=== PATIENT | male | born 1980 | race Caucasian/White ===

== ENCOUNTER 2016-10-05 12:55 | Inpatient (IN) | payer MEDICARE, OTHER ==
--- NOTE | ~2016-10-05 | DS ---
Unit #: [id number] #: [id number] Patient: BALAJI SHARP [id number] [facility] [address] [place] [address] [id number] MR#: [id number] NAME: BALAJI SHARP. ROOM: [facility] Age: 36 Sex: M Admission Date: 10/05/2016 : 1980 Discharge Date: 10/09/2016 Attending Physician: Milton Og M.D. DISCHARGE SUMMARY REASON FOR ADMISSION The patient is a 36-year-old white male with a history of schizoaffective disorder, admitted with exacerbation of symptoms following a period of medication noncompliance. HOSPITAL COURSE The patient was admitted to the [address] [place] [address] unit, but transferred to the [address] [place] [address] unit. He was restarted on previously prescribed medications including Remeron, Zoloft, and olanzapine and tolerated re-initiation of medications without complaint. He stabilized rapidly and by 10/09/2016 requested discharge, it was so ordered. FINAL DIAGNOSIS Schizoaffective disorder. DISPOSITION ON DISCHARGE The patient is discharged on the following medications; Remeron 15 mg h.s. for depression, Zyprexa 10 mg q.a.m. and 20 mg at h.s. for psychosis, Zoloft 50 mg daily for depression. DISCHARGE INSTRUCTIONS No dietary or physical restrictions were placed upon the patient at the time of discharge. FOLLOWUP Followup will take place through the auspices of community mental health resources. PROGNOSIS The patient's prognosis is considered fair. Dictated by... Milton Og M.D. CB/raoul TD: 10/09/2016 21:46 JOB #: [id number] Unit #: [id number] #: [id number] Patient: BALAJI SHARP DISCHARGE SUMMARY X Milton Og MD X DISCHARGE SUMMARY
--- NOTE | ~2016-10-05 | HP ---
Unit #: [id number] #: [id number] Patient: GABO SHARP [id number] [place] [address] [id number] I MR#: [id number] NAME: GABO SHARP. [facility] Age: 36 Sex: M Admission Date: 10/05/2016 : 1980 Attending Physician: Milton Og M.D. Admitting Physician: Milton Og M.D. Primary Care Physician: Primary Care Physician No HISTORY AND PHYSICAL HISTORY OF PRESENT ILLNESS Gabo is a 36-year-old male admitted on 10/05/2016 to [facility] for suicidal ideation and psychosis. PAST MEDICAL HISTORY None. PAST SURGICAL HISTORY None. ALLERGIES No known drug allergies. SOCIAL HISTORY Currently smokes 1 pack of cigarettes daily. Drinks two 24 ounce beers daily and occasional use of marijuana. He is currently single and living in a long-term. FAMILY HISTORY Noncontributory. REVIEW OF SYSTEMS CONSTITUTIONAL: No fever or chills. HEENT: Denies any sore throat, ear pain or runny nose. CARDIOVASCULAR: Denies chest pain, irregular heart rhythm or palpitations. CHEST: Denies shortness of breath or cough. No hemoptysis. GASTROINTESTINAL: Denies nausea, vomiting, diarrhea or chronic constipation. ENDOCRINE: Denies history of increased thirst or urination. No recent significant weight loss or gain. GENITOURINARY: Denies dysuria, frequency, or hematuria. SKIN: Denies any rashes. HEMATOLOGIC: Denies history of increased bleeding or bruising. MUSCULOSKELETAL: Denies any hot, swollen joints. No generalized muscle pain. NEUROLOGIC: Denies problems with vision or speech. No frequent, severe headaches. No numbness, tingling or weakness in any extremities. Denies loss of bladder or bowel control. CURRENT MEDICATIONS 1. Remeron. 2. Zoloft. Unit #: [id number] #: [id number] Patient: GABO SHARP PHYSICAL EXAMINATION GENERAL: Alert, oriented, in no acute distress. VITAL SIGNS: Blood pressure 120/76, heart rate 82, respirations 18, temperature 97.9. SKIN: Warm and dry without rash or lesion. HEENT: Normocephalic. TMs not viewed. Oral and nasal passages clear. Conjunctivae clear. PERRLA. EOMs intact. NECK: Supple without lymphadenopathy or thyromegaly. HEART: Regular rate and rhythm without murmur. LUNGS: Clear. ABDOMEN: Soft, nontender, without masses or hepatosplenomegaly. : Not done. EXTREMITIES: No evidence of cyanosis, clubbing or edema. Moves all without focal deficit. NEUROLOGICAL: Grossly within normal limits. Cranial Nerves: II: Visual lang are intact. III, IV AND : Extraocular movements are intact. Pupils are equal, round and reactive to light. V: Facial sensation is grossly normal. VII: Facial movements and expression are normal. VIII: Auditory acuity grossly intact. IX, X: Uvula is midline. Phonation is normal. XI: Patient shrugs shoulders and turns head normally. XII: Tongue protrudes in the midline. Sensory and Motor Function: Sensory and motor sensation is grossly normal. Motor: moves all extremities well. Coordination: Gait is normal. Deep Tendon Reflexes: Intact. IMPRESSION Psychiatric admission. RECOMMENDATIONS PSYCHIATRIC: Per psychiatrist. MEDICAL: No contraindications to participate in facility's activities. MEDICAL PROGNOSIS Good. MEDICAL CONDITION Stable. Dictated by... Reynaldo Kiser/faiza TD: 10/06/2016 17:32 JOB #: [id number] Unit #: [id number] #: [id number] Patient: GABO SHARP HISTORY AND PHYSICAL X IMANI JERONIMO APRN X HISTORY AND PHYSICAL
--- NOTE | ~2016-10-05 | PN ---
Unit #: [id number] #: [id number] Patient: BALAJI SHARP [id number] [facility] [address] [place] [address] [id number] I MR#: [id number] NAME: BALAJI SHARP ROOM: 13 Age: 36 Sex: M Admission Date: 10/05/2016 : 1980 Attending Physician: Milton Og M.D. Admitting Physician: Milton Og M.D. Primary Care Physician: Primary Care Physician Ale CHRISTOPHER PROGRESS NOTES DATE 10/07/2016 DISCUSSION The patient is abed today resting comfortably. He offers no complaints and staff reports no management issues. He has been compliant with medications and wallis routine otherwise. Dictated by... Milton Og M.D. CB/faiza TD: 10/07/2016 17:46 JOB #: [id number] CANDI PROGRESS NOTES X Milton Og MD X PROGRESS NOTE
--- NOTE | ~2016-10-05 | PN ---
Unit #: [id number] #: [id number] Patient: BALAJI SHARP [id number] [facility] [address] [place] [address] [id number] I MR#: [id number] NAME: BALAJI SHARP. ROOM: 13 Age: 36 Sex: M Admission Date: 10/05/2016 : 1980 Attending Physician: Milton Og M.D. Admitting Physician: Milton Og M.D. Primary Care Physician: Primary Care Physician Ale CHRISTOPHER PROGRESS NOTES DATE 10/08/2016 DISCUSSION The patient is more cooperative and less irritable. He is compliant with medications and wallis routine and is denying psychotic symptoms at this point. Should he sustain progress, discharge could take place as early as Monday. Dictated by... Milton Og M.D. CB/shamir TD: 10/08/2016 12:53 JOB #: [id number] CANDI PROGRESS NOTES X Milton Og MD PROGRESS NOTE
--- NOTE | ~2016-10-05 | PA ---
Unit #: [id number] #: [id number] Patient: BALAJI SHARP [id number] [facility] [address] [place] [address] [id number] MR#: [id number] NAME: BALAJI SHARP. ROOM: P[facility] Age: 36 Sex: M Admission Date: 10/05/2016 : 1980 Date of Assessment: 10/06/2016 Attending Physician: Milton Og M.D. Admitting Physician: Milton Og M.D. Primary Care Physician: Primary Care Physician No PSYCHIATRIC ASSESSMENT IDENTIFYING INFORMATION The patient is a 36-year-old homeless white male admitted to the [address] [place] [address] Unit after he had presented to this facility reporting increasing alcohol use as well as some suicidal ideation related to his current state of homelessness. CHIEF COMPLAINT None given. INFORMANT(S) Patient and chart, reliability is fair. HISTORY OF PRESENT ILLNESS The patient is a 36-year-old white male generally cared for at this facility by Dr. Nestor [place]. He is diagnosed with schizoaffective disorder, and his current psychotropic medications include olanzapine, Remeron, and Zoloft. The patient had presented to this facility yesterday. He has been homeless for some time, and this prescribed medications. He has been loud and aggressive with staff this morning and is requesting transfer to a different unit. The patient reports positive suicidal ideation and has reported increasing paranoia as well as poor sleep. He was considering the suicidal ideation secondary to concerns about his mothers failing health at the time of admission. He is also reporting positive auditory hallucinations. For more complete history of present illness, please refer to previously dictated notes. PAST PSYCHIATRIC HISTORY Reviewed, no changes. PAST MEDICAL HISTORY Reviewed, no changes. MEDICATIONS Zoloft, olanzapine, and Remeron. ALLERGIES None. FAMILY HISTORY Reviewed, no changes. SOCIAL HISTORY Reviewed, no changes. Unit #: [id number] #: [id number] Patient: BALAJI SHARP MENTAL STATUS EXAMINATION Examination at this time reveals the patient to be a well-developed well-nourished somewhat disheveled white male appearing stated age. He is in no apparent physical distress at the time of examination. He is awake, alert, and oriented in all spheres. His mood is dysphoric, his affect is somewhat labile. Speech is generally well-coherent. There are no gross deficits in memory or cognition noted. Intelligence is judged to be in the average range based on fund of knowledge. The patient is cooperative throughout the interview. He is currently endorsing positive suicidal ideation. He denies homicidal ideation. He denies any psychotic symptoms. His judgment and insight appear to be significantly impaired. ASSETS AND LIABILITIES The patient's assets: Motivation for change. Liabilities: Lack of resources. DIAGNOSTIC IMPRESSION 1. Schizoaffective disorder. 2. Alcohol use disorder. 3. Cannabis use disorder. TREATMENT PLAN The patient remains hospitalized for safety and stabilization. He is to restart medications, and we will transfer the patient to the [address] [place] [address] Unit for more appropriate therapeutic milieu. ESTIMATED LENGTH OF STAY 5 to 7 days in the hospital. Dictated by... Milton Og M.D. Jeff TD: 10/06/2016 14:46 JOB #: [id number] PSYCHIATRIC ASSESSMENT X Milton Og MD X PSYCHIATRIC ASSESSMENT
[~2016-10-05 12:55] MED LIST: CLARITIN10 MG PO; KLONOPIN PO; NEXIUM PO; ZYPREXA PO
== END 2016-10-09 13:53 | disposition home or self-care (01) | DRG 885 ==
LOC: P2L 12:55 → P1S 10-06 16:07
DX: F25.0 Schizoaffective disorder, bipolar type (principal); R45.851 Suicidal ideations; F29 Unspecified psychosis not due to a substance or known physiological condition; F10.10 Alcohol abuse, uncomplicated; F12.10 Cannabis abuse, uncomplicated; F17.200 Nicotine dependence, unspecified, uncomplicated; Z91.14 Patient's other noncompliance with medication regimen

== ENCOUNTER 2017-01-13 17:11 | Inpatient (IN) | payer MEDICARE, OTHER ==
--- NOTE | ~2017-01-13 | HP ---
Unit #: [id number] #: [id number] Patient: BALAJI SHARP [id number] [place] [address] [id number] MR#: [id number] NAME: BALAJI SHARP. ROOM: [facility] Age: 36 Sex: M Admission Date: 01/13/2017 : 1980 Attending Physician: Milton Og M.D. Admitting Physician: Milton Og M.D. Primary Care Physician: Primary Care Physician No HISTORY AND PHYSICAL HISTORY OF PRESENT ILLNESS The patient is a 36-year-old male admitted to [address] [place] [address] on 01/13/2017 for psychosis. PAST MEDICAL HISTORY The patient denies. PAST SURGICAL HISTORY Cholecystectomy. SOCIAL HISTORY He is disabled. He lives at [facility], smokes one pack of cigarettes daily. FAMILY MEDICAL HISTORY Noncontributory. ALLERGIES No known drug allergies. CURRENT MEDICATIONS Remeron, Zyprexa and Zoloft. REVIEW OF SYSTEMS CONSTITUTIONAL: No fever or chills. HEENT: Denies any sore throat, ear pain or runny nose. CARDIOVASCULAR: Denies chest pain, irregular heart rhythm or palpitations. CHEST: Denies shortness of breath or cough. No hemoptysis. GASTROINTESTINAL: Denies nausea, vomiting, diarrhea or chronic constipation. ENDOCRINE: Denies history of increased thirst or urination. No recent significant weight loss or gain. GENITOURINARY: Denies dysuria, frequency, or hematuria. SKIN: Denies any rashes. HEMATOLOGIC: Denies history of increased bleeding or bruising. MUSCULOSKELETAL: Denies any hot, swollen joints. No generalized muscle pain. NEUROLOGIC: Denies problems with vision or speech. No frequent, severe headaches. No numbness, tingling or weakness in any extremities. Denies loss of bladder or bowel control. PHYSICAL EXAM GENERAL: He is awake, alert and oriented in no acute distress. Unit #: [id number] #: [id number] Patient: BALAJI SHARP VITAL SIGNS: Temperature 98.2, heart rate 76, respiration 16, blood pressure 138/76. HEIGHT: 6'2". WEIGHT: 205 pounds. SKIN: Warm and dry without rash or lesion. HEENT: Normocephalic. TMs not viewed. Oral and nasal passages clear. Conjunctivae clear. PERRLA. EOMs intact. NECK: Supple without lymphadenopathy or thyromegaly. HEART: Regular rate and rhythm without murmur. LUNGS: Clear. ABDOMEN: Soft, nontender. : Not done. EXTREMITIES: No evidence of cyanosis, clubbing or edema. Moves all without focal deficit. MUSCULOSKELETAL: The patient reports neck pain. NEUROLOGICAL: Grossly within normal limits. Cranial Nerves: II: Visual lang are intact. III, IV AND : Extraocular movements are intact. Pupils are equal, round and reactive to light. V: Facial sensation is grossly normal. VII: Facial movements and expression are normal. VIII: Auditory acuity grossly intact. IX, X: Uvula is midline. Phonation is normal. XI: Patient shrugs shoulders and turns head normally. XII: Tongue protrudes in the midline. Sensory and Motor Function: Sensory and motor sensation is grossly normal. Motor: moves all extremities well. IMPRESSION 1. Psychiatric admission. 2. Nicotine dependence. RECOMMENDATIONS Psychiatric per psychiatrist. MEDICAL: No contraindication to participate in facility activities. MEDICAL PROGNOSIS Good. MEDICAL CONDITION Stable. Dictated by... Reynaldo Snyder/ethan TD: 01/15/2017 00:04 JOB #: [id number] Unit #: [id number] #: [id number] Patient: BALAJI SHARP HISTORY AND PHYSICAL Page 1 of 1 X OSWALDO GRIMM APRN HISTORY AND PHYSICAL
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
--- NOTE | ~2017-01-13 | PN ---
Unit #: [id number] #: [id number] Patient: BALAJI HSARP [id number] [facility] [address] [place] [address] [id number] I MR#: [id number] NAME: BALAJI SHARP. ROOM: [facility] Age: 36 Sex: M Admission Date: 01/13/2017 : 1980 Attending Physician: Milton Og M.D. Admitting Physician: Milton Og M.D. Primary Care Physician: Primary Care Physician Ale CHRISTOPHER PROGRESS NOTES DATE 01/16/2017 DISCUSSION The patient is in somewhat brighter spirits today and is pleasant and cooperative in his interactions with peers and staff. He is compliant with medications and we await word regarding possible return to [facility]. Dictated by... Milton Og M.D. CB/ethan TD: 01/16/2017 22:54 JOB #: [id number] PEADELILAH PROGRESS NOTES Page 1 of 1 X Milton Og MD X PROGRESS NOTE
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
== END 2017-01-18 09:50 | disposition home or self-care (01) | DRG 885 ==
LOC: P1S 18:37
DX: F25.9 Schizoaffective disorder, unspecified (principal); F17.210 Nicotine dependence, cigarettes, uncomplicated